=== PATIENT | male | born 1980 | race Caucasian/White ===

== ENCOUNTER 2020-04-07 12:20 | Emergency (ER) | payer BC ==
[~2020-04-07] VITALS: Ht 177.8 cm; Wt 104.5 kg
[2020-04-07 12:33] VITALS: Ht 177.8 cm; Wt 104.5 kg
[2020-04-07] MEDS ORDERED: CELEXA10 MG (12:36)
[2020-04-07] MEDS ORDERED: XANAX1 MG (12:36)
[2020-04-07] MEDS ORDERED: PROTONIX40 MG (12:36)
[2020-04-07] MEDS ORDERED: BYSTOLIC10 MG (12:37)
[2020-04-07 12:49] LABS: BASOPHILS 0.4 % (0-2); EOSINOPHILS 1.1 % (0-7); HEMATOCRIT 49.2 % (42.0-54.0); IMMATURE GRANULOCYTES 0.2 % (0-5); LYMPHOCYTES 37.2 % (15-50); MCH 33.8 pg (26.0-34.0); MCHC 34.6 g/dL (31.0-37.0); MCV 97.8 fL (80.0-100.0); MEAN PLATELET VOLUME 9.8 fL (7.4-10.4); MONOCYTES 9.3 % (2-11); NEUTROPHILS 51.8 % (40-80); PLATELET COUNT 212 10x3/uL (130-400); RBC 5.03 10x6/uL (4.20-6.10); RDW 12.2 % (11.5-14.5); WBC 4.6 10x3/uL (4.8-10.8)
[2020-04-07 12:56] LABS: INR 0.92 (0.85-1.17); PROTIME 12.3 SECONDS (11.6-15.0)
[2020-04-07 13:51] LABS: CALC OSMOLALITY 272 mosm/kg (275-300); CARBON DIOXIDE 25.7 mmol/L (21.0-32.0); CHLORIDE - SERUM 104 mmol/L (98-107); CREATININE - SERUM 1.2 mg/dL (0.6-1.3); GLUCOSE 101 mg/dL (74-106); POTASSIUM - SERUM 4.3 mmol/L (3.5-5.1); SODIUM 137 mmol/L (136-145); UREA NITROGEN 9 mg/dL (7-18); eGFR NON AFRICAN AMERICAN 71 mL/min (90-120)
[2020-04-07 14:05] LABS: ALBUMIN 4.1 g/dL (3.4-5.0); ALKALINE PHOSPHATASE 63 U/L (30-120); ALT (SGPT) 110 U/L (10-68); BILIRUBIN - TOTAL 0.66 mg/dL (0.2-1.3); CKMB 1.9 U/L (0.0-3.6); CREATINE KINASE 158 UL (21-232); PROTEIN - SERUM 7.7 g/dL (6.4-8.2); TROPONIN-I < 0.017 ng/mL (0.000-0.060)
[2020-04-07] MEDS ORDERED: XARELTO20 MG PO (14:53)
== END 2020-04-07 15:22 | disposition home or self-care (01) ==
LOC: D.ER 12:20
DX: R00.2 Palpitations (principal); I48.91 Unspecified atrial fibrillation; K21.9 Gastro-esophageal reflux disease without esophagitis; F17.210 Nicotine dependence, cigarettes, uncomplicated